=== PATIENT | male | born 1955 | race American Indian/Alaskan Native ===

== ENCOUNTER 2017-06-28 21:35 | Inpatient (IN) | payer OTHER ==
--- NOTE | 2017-06-28 22:31 | Emergency Department Report ---
ED Chest Pain HPI - General Chief Complaint: Chest Pain Stated Complaint: ALLERGIC REACTION Time Seen by Provider: 06/28/17 22:09 Source: patient, EMS Mode of arrival: Stretcher Limitations: No Limitations - History of Present Illness Initial Comments: 61 yo MALE WITH RETROSTERNAL CHEST PAIN RADIATING TO HIS BACK SEEN INITIALLY AT [facility] IN [place] AND WAS TREATED FOR ALLERGIC REACTION . PT INITALLY C/O BEING ALLERGIC TO PROCARDIA WHICH HE TOOK AT 1100 AM AND THEN HIS SYMPTOMS OF CHEST PAIN , DIAPHORESIS , DIZZINESS, NAUSEA, PALPITATIONS AND VOMITING BEGAN AT 1800 IN THE EVENING. HE DENIED SHORTNESS OF BREATH , BACK PAIN, NO FEVER,HEADACHE, NO SOB. PT ALSO SAID HE HAD A CLOSING THROAT SENSATION. 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 Complaint: chest pain Severity scale (0 -10): 5 - Related Data Allergies Allergy/AdvReac Type Severity Reaction Status Date / Time lisinopril Allergy Unknown Verified 06/28/17 21:59 verapamil Allergy Unknown Verified 06/28/17 21:59 ED Review of Systems ROS: Stated complaint: ALLERGIC REACTION Other details as noted in HPI ED Past Medical Hx - Past Medical History Previous Medical History?: Yes Hx Hypertension: Yes Hx Diabetes: Yes (PREDIABETES) Hx Arthritis: Yes Additional medical history: Gout,HYPERLIPIDEMIA,MALE ERECTILE DISORDER - Surgical History Past Surgical History?: Yes Additional Surgical History: Hernia repair, Hemorrhoidectomy, tonsillectomy, colonoscopy, prostate biopsy - Social History Smoking Status: Never Smoker Substance Use Type: Alcohol ED Physical Exam - General Limitations: No Limitations ED Course Vital Signs 06/28/17 06/28/17 06/28/17 21:49 21:59 22:00 Temperature 98.4 F Pulse Rate 92 H 88 Respiratory 15 11 L Rate Blood Pressure 135/82 135/75 O2 Sat by Pulse 97 96 95 Oximetry 06/28/17 22:20 Temperature Pulse Rate Respiratory 14 Rate Blood Pressure O2 Sat by Pulse 96 Oximetry ED Medical Decision Making - Lab Data Result diagrams: 06/28/17 23:07 06/28/17 23:07 Critical care attestation.: If time is entered above; I have spent that time in minutes in the direct care of this critically ill patient, excluding procedure time. ED Disposition Clinical Impression: Chest pain Condition: Stable Instructions: Chest Pain (ED) Referrals: JUVENTINO RAYMUNDO MD [Other] - 3-5 Days
[2017-06-28 23:38] LABS: Mean Corpuscular HGB Conc 30 % (32-34); Mean Corpuscular Volume 76 fl (84-94); Platelet Count 168 K/mm3 (140-440); Red Cell Distribution Width 17.4 % (13.2-15.2)
[2017-06-28 23:49] LABS: BUN/Creatinine Ratio 16; Blood Urea Nitrogen 13 mg/dL (9-20); Calcium 8.9 mg/dL (8.4-10.2); Hemolysis Index 5
[2017-06-28 23:52] LABS: Hemoglobin 12.4 gm/dl (11.8-15.2)
[2017-06-28 23:53] LABS: Hematocrit 40.8 % (35.5-45.6); Mean Corpuscular Hemoglobin 23 pg (28-32)
[2017-06-29 00:17] LABS: Creatine Kinase MB 1.7 ng/mL (0.0-4.0)
[2017-06-29 00:18] LABS: Alanine Aminotransferase 18 units/L (7-56); Albumin 4.4 g/dL (3.9-5)
[2017-06-29 00:27] LABS: Bilirubin,Direct < 0.2 mg/dL (0-0.2)
[2017-06-29] MEDS ORDERED: NITROSTAT SL PRN (00:37)
--- NOTE | 2017-06-29 01:06 | XRay Report ---
FINAL REPORT EXAM: XR CHEST 1V AP HISTORY: chest pain TECHNIQUE: A portable upright view of the chest was submitted. FINDINGS: The heart size and mediastinum appear normal. The lungs are clear. Pleural fluid is not seen. The bones and soft tissues well maintained. IMPRESSION: No active chest disease.
[2017-06-29 01:37] LABS: Bilirubin,Urine NEG (Negative); Blood,Urine NEG (Negative); Color,Urine Straw (Yellow); Nitrite,Urine NEG (Negative); Protein,Urine <15 mg/dL mg/dL (Negative); Urobilinogen,Urine < 2.0 mg/dL (<2.0); WBC,Urine < 1.0 /HPF (0.0-6.0)
[2017-06-29 01:46] LABS: Amphetamine Screen,Urine PRESUMPTIVE NEGATIVE; Benzodiazepines Screen,Urine PRESUMPTIVE NEGATIVE; Cannabinoid Screen,Urine PRESUMPTIVE NEGATIVE; Cocaine Screen,Urine PRESUMPTIVE NEGATIVE; Methadone Screen,Urine PRESUMPTIVE NEGATIVE; Opiate Screen,Urine PRESUMPTIVE NEGATIVE
[2017-06-29] MEDS ORDERED: ASPIRIN ONE (02:04)
--- NOTE | 2017-06-29 02:13 | Cat Scan Report ---
FINAL REPORT EXAM: CT ANGIO CHEST HISTORY: CHEST PAIN RADIATING TO BACK TECHNIQUE: A CT angiogram was performed following the intravenous injection of 100 cc of Omnipaque 350. Rotational, sagittal and coronal MIP reconstructions were obtained. FINDINGS: The lungs reveal minimal dependent atelectasis in both lower lobes. There are no infiltrates or congestion. There is no evidence of pulmonary embolus or aortic dissection. The heart size is normal. Pericardial fluid is not seen. There is no evidence of lymphadenopathy. In the upper abdomen the adrenal glands appear normal. The skeletal structures are unremarkable. At the thoracic inlet the thyroid gland appears normal. IMPRESSION: No evidence of pulmonary embolus or aortic dissection. Minimal bibasilar dependent atelectasis in both lower lobes.
[2017-06-29] MEDS ORDERED: ASPIRIN PO ONE (02:16)
[2017-06-29] MEDS ORDERED: TYLENOL PO PRN (04:45)
[2017-06-29] MEDS ORDERED: ZOFRAN IV PRN (04:45)
[2017-06-29] MEDS ORDERED: MILK OF MAGNESIA PO PRN (04:45)
[2017-06-29] MEDS ORDERED: DULCOLAX PR PRN (04:45)
[2017-06-29 04:46] LABS: Band Neutrophils # (Manual) 0.9 K/mm3; Basophils % (Manual) 0 % (0.0-1.8); Total Cells Counted 100
[2017-06-29 04:47] LABS: Anisocytosis 1+; Hypochromasia 1+; Large Platelets Few
[2017-06-29 04:52] LABS: Creatine Kinase MB 1.6 ng/mL (0.0-4.0)
--- NOTE | 2017-06-29 05:17 | History and Physical Report ---
History of Present Illness Date of examination: 06/29/17 Date of admission: 06/29/17 04:45 History of present illness: 61-year-old male with a history of hypertension, came to the emergency room with complaints of chest pain, dizziness, nausea vomiting, diaphoresis and palpitation. He stated that he started on a new medication, Procardia yesterday morning at 8 AM. He also stated that he felt as if his throat was closing up. His pain is in the epigastric area which she describes as a dull pain, constant, radiating to the back, intensity 5/10. Denies shortness of breath. He was seen at [facility] and was given steroids, Pepcid and Benadryl. He had a stress test in December after he developed allergicc reaction to lisinopril Review Of Systems: Constitutional: no weight loss Ears, eyes, nose, mouth and throat: no nasal congestion, no nasal discharge, no sinus pressure, blurry vision, diplopia Neck: No neck pain or rigidity. Cardiovascular:+ chest pain, palpitations Respiratory: No shortness of breath, cough Gastrointestinal: No abdominal pain, hematochezia Genitourinary : no dysuria, frequency , hematuria Musculoskeletal: no muscle ache Integumentary: no rash, no pruritis Neurological: no parathesias, focal weakness Endocrine: no cold or heat intolerance, no polyuria or polydipsia Hematologic/Lymphatic: no easy bruising, no easy bleeding, no gland swelling Allergic/Immunologic: no urticaria, no angioedema. PAST MEDICAL HISTORY:hypertension PAST SURGICAL HISTORY: None FAMILY HISTORY:hypertension SOCIAL HISTORY: Social alcohol, no tobacco or drugs Medications and Allergies Allergies Allergy/AdvReac Type Severity Reaction Status Date / Time lisinopril Allergy Unknown Verified 06/28/17 21:59 verapamil Allergy Unknown Verified 06/28/17 21:59 Home Medications Medication Instructions Recorded Confirmed Last Taken Type cloNIDine [Catapres] 0.3 mg PO BID 06/29/17 06/29/17 06/28/17 18:00 History hydrALAZINE [Apresoline TAB] 100 mg PO TID 06/29/17 06/29/17 06/28/17 18:00 History Active Meds: Active Medications Acetaminophen (Tylenol) 650 mg PO Q4H PRN PRN Reason: Pain MILD(1-3)/Fever >100.5/NAYLOR Aspirin (Aspirin) 325 mg PO QDAY SUSIE Bisacodyl (Dulcolax) 10 mg ID QDAY PRN PRN Reason: Constipation unrelieved by MOM Diphenhydramine HCl (Benadryl) 25 mg IV Q6H SUSIE Enoxaparin Sodium (Lovenox) 30 mg SUB-Q QDAY SUSIE Famotidine (Pepcid) 20 mg IV BID SUSIE Magnesium Hydroxide (Milk Of Magnesia) 30 ml PO Q4H PRN PRN Reason: Constipation Methylprednisolone Sodium Succinate (Solu-Medrol) 60 mg IV Q8H SUSIE Nitroglycerin (Nitrostat) 0.4 mg SL .Q5MIN PRN PRN Reason: Chest Pain Last Admin: 06/29/17 02:15 Dose: 0.4 mg Ondansetron HCl (Zofran) 4 mg IV Q8H PRN PRN Reason: N/V unrelieved by Reglan Exam - Physical Exam Narrative exam: Gen. appearance: Patient lying in bed in no acute distress HEENT: Normocephalic/atraumatic, pupils equal round reactive to light, extra occular movement intact, no scleral icterus, no JVD or thyromegaly or nodule, neck is supple, mucous membrane moist, no erythema or exudate Heart: S1-S2, regular rate and rhythm Lungs: Clear to auscultation bilateral breathing comfortable Abdomen: Positive bowel sounds, nontender, nondistended, no organomegaly Extremities: No edema, cyanosis, clubbing Neuro:: Oriented 3 , cranial nerves II-12 intact, speech, motor intact Skin: No rash, nodules, warm dry - Constitutional Vitals: Temp Pulse Resp BP Pulse Ox 98.4 F 105 H 11 L 143/88 97 06/28/17 21:59 06/29/17 05:00 06/29/17 05:00 06/29/17 05:00 06/29/17 05:00 Results - Labs CBC & Chem 7: 06/30/17 04:00 06/30/17 04:00 Labs: Abnormal lab results 06/28/17 06/28/17 06/28/17 Range/Units 23:07 23:07 23:07 WBC 14.4 H (4.5-11.0) K/mm3 RBC 5.40 H (3.65-5.03) M/mm3 MCV 76 L (84-94) fl MCH 23 L (28-32) pg MCHC 30 L (32-34) % RDW 17.4 H (13.2-15.2) % Seg Neuts % (Manual) 81.0 H (40.0-70.0) % Lymphocytes % (Manual) 7.0 L (13.4-35.0) % Seg Neutrophils # Man 11.7 H (1.8-7.7) K/mm3 Lymphocytes # (Manual) 1.0 L (1.2-5.4) K/mm3 Eosinophils # (Manual) 0.6 H (0.0-0.4) K/mm3 Glucose 126 H (75-100) mg/dL Total Creatine Kinase 925 H (55-170) units/L Urine pH (5.0-7.0) 06/29/17 06/29/17 Range/Units 01:21 04:14 WBC (4.5-11.0) K/mm3 RBC (3.65-5.03) M/mm3 MCV (84-94) fl MCH (28-32) pg MCHC (32-34) % RDW (13.2-15.2) % Seg Neuts % (Manual) (40.0-70.0) % Lymphocytes % (Manual) (13.4-35.0) % Seg Neutrophils # Man (1.8-7.7) K/mm3 Lymphocytes # (Manual) (1.2-5.4) K/mm3 Eosinophils # (Manual) (0.0-0.4) K/mm3 Glucose (75-100) mg/dL Total Creatine Kinase 904 H (55-170) units/L Urine pH 8.0 H (5.0-7.0) - Imaging and Cardiology EKG: image reviewed Chest x-ray: image reviewed CT scan - chest: report reviewed Assessment and Plan Assessment Allergic reaction Chest pain most likely due to number 1 Hypertension Steroid induced leukocytosis Plan Admit to medicine Start solumedrol, pepcid, benadryl check cardiac enzymes, consult cardiology DVT prophalaxis
[2017-06-29] MEDS ORDERED: BENADRYL ONE (05:43)
[2017-06-29] MEDS: BENADRYL IV SCH ×4 (05:53→22:41)
[2017-06-29 09:32] LABS: Creatine Kinase MB 1.8 ng/mL (0.0-4.0)
--- NOTE | 2017-06-29 10:04 | Consultation ---
History of Present Illness Consult date: 06/29/17 Requesting physician: LAUREANO TAYLOR Consult reason: chest pain History of present illness: The patient is a 61 year old male with a history of hypertension who presented to the ER for evaluation of a possible allergic reaction to Procardia. He states that he took Procardia for the first time yesterday morning and several hours later began to experience substernal and epigastic discomfort associated with diaphoresis. He also felt lightheaded, nauseated and if his throat was closing up. He was seen at [facility] and was given steroids, Pepcid and Benadryl and later transferred to the ER at [facility]. Troponin negative x 3. Chest CTA negative for PE. Currently, he states that he is feeling better but continues to experience intermittent chest discomfort. Past History Past Medical History: hypertension Past Surgical History: No surgical history Social history: . denies: smoking, alcohol abuse, prescription drug abuse Family history: no significant family history Medications and Allergies Allergies Allergy/AdvReac Type Severity Reaction Status Date / Time lisinopril Allergy Unknown Verified 06/28/17 21:59 verapamil Allergy Unknown Verified 06/28/17 21:59 Home Medications Medication Instructions Recorded Confirmed Last Taken Type cloNIDine [Catapres] 0.3 mg PO BID 06/29/17 06/29/17 06/28/17 18:00 History hydrALAZINE [Apresoline TAB] 100 mg PO TID 06/29/17 06/29/17 06/28/17 18:00 History Active Meds: Active Medications Acetaminophen (Tylenol) 650 mg PO Q4H PRN PRN Reason: Pain MILD(1-3)/Fever >100.5/NAYLOR Aspirin (Aspirin) 325 mg PO QDAY SUSIE Bisacodyl (Dulcolax) 10 mg [place] QDAY PRN PRN Reason: Constipation unrelieved by MOM Diphenhydramine HCl (Benadryl) 25 mg IV Q6H [facility] Last Admin: 06/29/17 05:53 Dose: 25 mg Enoxaparin Sodium (Lovenox) 40 mg SUB-Q QDAY [facility] Famotidine (Pepcid) 20 mg IV BID [facility] Magnesium Hydroxide (Milk Of Magnesia) 30 ml PO Q4H PRN PRN Reason: Constipation Methylprednisolone Sodium Succinate (Solu-Medrol) 60 mg IV Q8H [facility] Last Admin: 06/29/17 06:12 Dose: 60 mg Nitroglycerin (Nitrostat) 0.4 mg SL .Q5MIN PRN PRN Reason: Chest Pain Last Admin: 06/29/17 02:15 Dose: 0.4 mg Ondansetron HCl (Zofran) 4 mg IV Q8H PRN PRN Reason: N/V unrelieved by Reglan Review of Systems Constitutional: no fever, no chills Ears, nose, mouth and throat: no nasal congestion, no nasal discharge, no sinus pressure Cardiovascular: chest pain, no shortness of breath Respiratory: no cough, no shortness of breath, no congestion, no wheezing Gastrointestinal: nausea, no diarrhea, no constipation Genitourinary Male: no dysuria, no hematuria Musculoskeletal: no neck stiffness, no neck pain, no myalgias Integumentary: no rash, no pruritis, no redness Neurological: no parathesias, no numbness, no tingling Psychiatric: no anxiety, no memory loss Endocrine: no cold intolerance, no heat intolerance Hematologic/Lymphatic: no easy bruising, no easy bleeding Allergic/Immunologic: no urticaria, no wheezing Physical Examination Last Vital Signs Temp 97.4 F L 06/29/17 07:22 Pulse 112 H 06/29/17 07:22 Resp 18 06/29/17 07:22 BP 153/96 06/29/17 07:22 Pulse Ox 97 06/29/17 07:22 General appearance: no acute distress HEENT: Positive: PERRL, Normocephaly, Mucus Membranes Moist Neck: Positive: neck supple, trachea midline Cardiac: Positive: Reg Rate and Rhythm, S1/S2 Lungs: Positive: clear to auscultation Neuro: Positive: Grossly Intact Abdomen: Positive: Soft, Active Bowel Sounds. Negative: Tender Skin: Positive: Clear. Negative: Rash Extremities: Present: normal. Absent: edema Results 06/28/17 23:07 06/28/17 23:07 Cardiac Enzymes 06/28/17 06/28/17 06/29/17 Range/Units 23:07 23:07 04:14 AST 23 (5-40) units/L CK-MB (CK-2) 1.7 1.6 (0.0-4.0) ng/mL 06/29/17 Range/Units 08:51 AST (5-40) units/L CK-MB (CK-2) 1.8 (0.0-4.0) ng/mL CBC 06/28/17 Range/Units 23:07 WBC 14.4 H (4.5-11.0) K/mm3 RBC 5.40 H (3.65-5.03) M/mm3 Hgb 12.4 (11.8-15.2) gm/dl Hct 40.8 (35.5-45.6) % Plt Count 168 (140-440) K/mm3 Comprehensive Metabolic Panel 06/28/17 06/28/17 Range/Units 23:07 23:07 Sodium 141 (137-145) mmol/L Potassium 4.6 (3.6-5.0) mmol/L Chloride 101.5 (98-107) mmol/L Carbon Dioxide 22 (22-30) mmol/L BUN 13 (9-20) mg/dL Creatinine 0.8 (0.8-1.5) mg/dL Glucose 126 H (75-100) mg/dL Calcium 8.9 (8.4-10.2) mg/dL Direct Bilirubin < 0.2 (0-0.2) mg/dL Indirect Bilirubin 0.0 mg/dL AST 23 (5-40) units/L ALT 18 (7-56) units/L Alkaline Phosphatase 67 (35-129) units/L Total Protein 7.3 (6.3-8.2) g/dL Albumin 4.4 (3.9-5) g/dL - Imaging and Cardiology EKG: image reviewed EKG interpretations - Telemetry EKG Rhythm: Sinus Rhythm - EKG Sinus rhythms and dysrhythmias: sinus rhythm Assessment and Plan Assessment: Chest pain ?Allergic reaction to procardia Hypertension GERD Plan: Given persistent chest discomfort, will proceed with treadmill nuclear stress test tomorrow morning. Further recommendations to follow. The patient has been seen in conjunction with Dr. Dubose who agrees with the assessment and plan of care.
[2017-06-29] MEDS: LOVENOX SUB-Q SCH (10:39)
[2017-06-29] MEDS: ASPIRIN PO SCH (10:39)
[2017-06-29] MEDS: PEPCID IV SCH ×2 (10:40→21:20)
[2017-06-29] MEDS ORDERED: CATAPRES PO SCH (11:00)
[2017-06-29] MEDS: APRESOLINE PO SCH ×3 (11:30→21:18)
[2017-06-29] MEDS: CATAPRES PO SCH ×2 (11:30→21:18)
--- NOTE | 2017-06-29 16:49 | Event Note ---
Date: 06/29/17 Patient was seen and evaluated this morning, patient complains intermittent chest pain. Cardiology will do stress test tomorrow. Continue management per H &P.
[2017-06-30] MEDS: BENADRYL IV SCH ×3 (05:46→17:00)
[2017-06-30] MEDS: APRESOLINE PO SCH ×2 (07:03→13:20)
[2017-06-30 07:09] LABS: BUN/Creatinine Ratio 16; Basophils % (Auto) 0.1 % (0.0-1.8); Blood Urea Nitrogen 18 mg/dL (9-20); Calcium 9.2 mg/dL (8.4-10.2); Hematocrit 44.1 % (35.5-45.6); Hemoglobin 13.8 gm/dl (11.8-15.2); Hemolysis Index 10; Lymphocytes # (Auto) 1.2 K/mm3 (1.2-5.4); Lymphocytes % (Auto) 8.6 % (13.4-35.0); Mean Corpuscular HGB Conc 31 % (32-34); Mean Corpuscular Volume 76 fl (84-94); Monocytes # (Auto) 1.1 K/mm3 (0.0-0.8); Monocytes % (Auto) 7.9 % (0.0-7.3); Red Blood Count 5.79 M/mm3 (3.65-5.03); Red Cell Distribution Width 17.9 % (13.2-15.2)
[2017-06-30 07:11] LABS: Mean Corpuscular Hemoglobin 24 pg (28-32)
[2017-06-30 07:18] LABS: Platelet Count 177 K/mm3 (140-440)
--- NOTE | 2017-06-30 08:31 | Progress Note ---
Assessment and Plan Assessment: Chest pain ?Allergic reaction to procardia Hypertension GERD Plan: Stress test negative for ischemia. No further chest pain. Continue medical management and aggressive risk factor modification. Patient to follow up with his primary natural gas engineer at [facility]. Will sign off. The patient has been seen in conjunction with Dr. Dubose who agrees with the assessment and plan of care. Subjective Date of service: 06/30/17 Principal diagnosis: chest pain Interval history: Patient seen and examined in the stress lab. No further chest pain. Sinus rhythm on the monitor. Objective Last Vital Signs Temp 98.6 F 06/30/17 08:55 Pulse 119 H 06/30/17 08:56 Resp 18 06/30/17 08:55 BP 185/97 06/30/17 08:56 Pulse Ox 100 06/30/17 08:55 - Physical Examination General: No Apparent Distress HEENT: Positive: PERRL, Normocephaly, Mucus Membranes Moist Neck: Positive: neck supple, trachea midline Cardiac: Positive: Reg Rate and Rhythm, S1/S2 Lungs: Positive: clear to auscultation Neuro: Positive: Grossly Intact Abdomen: Positive: Soft, Active Bowel Sounds. Negative: Tender Skin: Positive: Clear. Negative: Rash Extremities: Present: normal. Absent: edema - Labs and Meds Cardiac Enzymes 06/29/17 Range/Units 08:51 CK-MB (CK-2) 1.8 (0.0-4.0) ng/mL CBC 06/30/17 Range/Units 04:00 WBC 14.2 H (4.5-11.0) K/mm3 RBC 5.79 H (3.65-5.03) M/mm3 Hgb 13.8 (11.8-15.2) gm/dl Hct 44.1 (35.5-45.6) % Plt Count 177 (140-440) K/mm3 Lymph # 1.2 (1.2-5.4) K/mm3 [place] # 1.1 H (0.0-0.8) K/mm3 Eos # 0.0 (0.0-0.4) K/mm3 Baso # 0.0 (0.0-0.1) K/mm3 Comprehensive Metabolic Panel 06/30/17 Range/Units 04:00 Sodium 140 (137-145) mmol/L Potassium 4.7 (3.6-5.0) mmol/L Chloride 98.9 (98-107) mmol/L Carbon Dioxide 21 L (22-30) mmol/L BUN 18 (9-20) mg/dL Creatinine 1.1 (0.8-1.5) mg/dL Glucose 130 H (75-100) mg/dL Calcium 9.2 (8.4-10.2) mg/dL - Imaging and Cardiology EKG: image reviewed - Telemetry EKG Rhythm: Sinus Rhythm - EKG Sinus rhythms and dysrhythmias: sinus rhythm
[2017-06-30] MEDS ORDERED: LEXISCAN IV ONE ×2 (08:45→08:53)
[2017-06-30] MEDS ORDERED: NACL 0.9% 1000 ML 1,000 ML IV SCH (10:00)
[2017-06-30] MEDS ORDERED: APRESOLINE IV ONE (10:18)
--- NOTE | 2017-06-30 10:59 | Treadmill Report ---
NUCLEAR CARDIAC IMAGING INDICATION FOR PROCEDURE: Chest pain. Informed consent was obtained. Vasodilator stress was achieved with the intravenous administered of 0.4 mg of Lexiscan. DESCRIPTION OF PROCEDURE: Resting nuclear cardiac images were performed 45-60 minutes following the intravenous administration of 10 mCi of technetium-99m Myoview. Stress nuclear images were obtained 30-45 minutes following the intravenous administration of 28 mCi of technetium-99m Myoview. Images were obtained in a 180-degree arc from 45 degrees LEVY to 45 degrees LPO. After data acquisition, the images were processed and reoriented into the vertical long, horizontal long, and horizontal short axis slices. A polar color map of the horizontal short axis slices was generated and reviewed. The rotating planar images reviewed in cinematic format on the computer console. Gated SPECT imaging demonstrates a post-stress left ventricular ejection fraction of 64% with normal wall motion. Myocardial perfusion imaging demonstrates no significant stress-induced perfusion abnormalities. There is no significant cavity change between stress and rest. Nuclear cardiac imaging demonstrates grossly normal post-stress left ventricular systolic function with no significant evidence for myocardial ischemia or necrosis. [facility]# [id number] KIKE/JESSIE
[2017-06-30] MEDS: ASPIRIN PO SCH (11:20)
[2017-06-30] MEDS: LOVENOX SUB-Q SCH (11:20)
[2017-06-30] MEDS: CATAPRES PO SCH (11:21)
[2017-06-30] MEDS: PEPCID IV SCH (11:22)
--- NOTE | 2017-06-30 13:52 | Discharge Summary ---
<MASONDANIELLA FANG - Last Filed: 06/30/17 13:57> Providers - Providers Date of Admission: 06/29/17 04:45 Date of discharge: 06/30/17 Attending physician: JARRETT CLAROS MD Hospitalization Reason for admission: Chest pain Condition: Stable Hospital course: Patient is a 61-year-old male with a history of hypertension, came to the emergency room with complaints of chest pain, dizziness, nausea vomiting, diaphoresis and palpitation. Patient presented with atypical chest pain, ACS was ruled out, stress test normal MPI, negative cardiac enzymes, ECGs shows normal sinus rythm, CXR WNL. CTA no evidence of PE. Patient chest pain probably from musculoskeletal. He was treated with IV fluid hydration and antihypertensive medications. Patient is clinically improved and stable for discharge. Patient advised to follow-up with her primary care provider. Discharge Diagnosed Allergic reaction Chest pain most likely due Costochondritis Hypertension Steroid induced leukocytosis Rhabdomyolysis Disposition: TO HOME OR SELFCARE Time spent for discharge: 33 minutes Core Measure Documentation - Palliative Care Palliative Care/ Comfort Measures: Not Applicable - Core Measures Any of the following diagnoses?: none Exam - Constitutional Vitals: Temp Pulse Resp BP Pulse Ox 98.6 F 119 H 18 185/97 100 06/30/17 08:55 06/30/17 08:56 06/30/17 08:55 06/30/17 08:56 06/30/17 08:55 General appearance: Present: no acute distress - EENT Eyes: Present: PERRL - Neck Neck: Present: supple - Respiratory Respiratory effort: normal Respiratory: bilateral: CTA - Cardiovascular Rhythm: regular Heart Sounds: Present: S1 & S2 - Abdominal General gastrointestinal: Present: soft, non-tender Male genitourinary: Present: deferred - Rectal Rectal Exam: deferred - Integumentary Integumentary: Present: clear, warm, dry - Musculoskeletal Musculoskeletal: strength equal bilaterally - Psychiatric Psychiatric: appropriate mood/affect - Neurologic Neurologic: moves all extremities - Allied Health Allied health notes reviewed: nursing Plan Follow up with: JUVENTINO RAYMUNDO MD [Other] - 3-5 Days Forms: Work/School Release Form <JARRETT CLAROS - Last Filed: 07/01/17 18:07> Providers - Providers Date of Admission: 06/29/17 04:45 Attending physician: JARRETT CLAROS MD Hospitalization Pertinent studies: Stress test was done and negative for acute ischemic changes - Discharge Diagnoses (1) Chest pain Status: Acute Core Measure Documentation - Palliative Care Palliative Care/ Comfort Measures: Not Applicable - Core Measures Any of the following diagnoses?: none Exam - Constitutional Vitals: Temp Pulse Resp BP Pulse Ox 98.6 F 120 H 18 152/87 98 06/30/17 08:55 06/30/17 15:53 06/30/17 15:53 06/30/17 15:53 06/30/17 15:53 Plan Activity: no restrictions Weight Bearing Status: Full Weight Bearing Diet: low fat, low cholesterol, low salt
[2017-06-30 16:47] VITALS: BP 152/87
== END 2017-06-30 19:25 | disposition home or self-care (01) | DRG 206 ==
LOC: ED 21:35 → 4A 06-29 04:45
PROVIDERS: ADMIT Internal Medicine; ATTEND Internal Medicine
DX: M94.0 Chondrocostal junction syndrome [Tietze] (principal); M62.82 Rhabdomyolysis; Z88.8 Allergy status to other drugs, medicaments and biological substances; I10 Essential (primary) hypertension; E78.5 Hyperlipidemia, unspecified; Z82.49 Family history of ischemic heart disease and other diseases of the circulatory system; D72.828 Other elevated white blood cell count; K21.9 Gastro-esophageal reflux disease without esophagitis; T46.1X5A Adverse effect of calcium-channel blockers, initial encounter; Y92.89 Other specified places as the place of occurrence of the external cause
CPT/HCPCS: 36415; 71045; 71275; 78452; 80048; 80074; 80307; 81001; 82550; 82553; 84484; 85007; 85025; 93005; 93010; 93017; A9502; J0360; J1200; J1650; J2785; J2920; J7030; Q9967